=== PATIENT | female | born 1950 | race Caucasian/White ===

== ENCOUNTER 2022-09-07 09:49 | Emergency (ER) | payer MEDICARE, OTHER ==
[2022-09-07] MEDS ORDERED: Sodium Chloride 0.9% 10 ML Syringe FLUSH PRN (10:08)
[2022-09-07] MEDS: Acetaminophen 500 MG Tab PO ONE (10:09)
[2022-09-07 10:40] LABS: ANION GAP 8.5 meq/L (7-15); CHLORIDE,CL 105 mmol/L (98-107); SODIUM,NA 141 mmol/L (136-145)
[2022-09-07 11:16] LABS: ESTIMATED GFR 85 mL/min (>=60)
[2022-09-07] MEDS: Iopamidol 612 MG/ML 100 ML Bottle IVPUSH ONE (12:37)
[2022-09-07 15:22] LABS: CORONAVIRUS COVID-19 NAA NEGATIVE (NEGATIVE); RESPIRATORY SYNCYTIAL VIR NAA NEGATIVE (NEGATIVE)
== END 2022-09-07 15:15 ==
LOC: LL.ED 09:49
DX: K43.6 Other and unspecified ventral hernia with obstruction, without gangrene (principal); Z88.0 Allergy status to penicillin; Z88.2 Allergy status to sulfonamides; Z20.822 Contact with and (suspected) exposure to COVID-19
CPT/HCPCS: 0241U; 36415; 74177; 80053; 83605; 85025; 99284; 99285; A9270; Q9967

== ENCOUNTER 2023-05-18 05:52 | Emergency (ER) | payer MEDICARE, OTHER ==
[2023-05-18] MEDS ORDERED: Ondansetron 4 MG Tab.DIS PO ONE (05:59)
[2023-05-18 06:19] LABS: BASOPHILS ABSOLUTE AUTO 0.03 K/uL (0.00-0.20); BASOPHILS PERCENT AUTO 0.3 % (0.0-2.0); EOSINOPHILS ABSOLUTE AUTO 0.01 K/uL (0.00-0.50); EOSINOPHILS PERCENT AUTO 0.1 % (0.0-5.0); HEMATOCRIT 41.2 % (34.0-46.0); HEMOGLOBIN 13.6 g/dL (11.7-15.5); LYMPHOCYTES ABSOLUTE AUTO 1.59 K/uL (0.50-3.50); LYMPHOCYTES PERCENT AUTO 13.8 % (10.0-50.0); MEAN CORPUSCULAR HEMOGLOBIN 28.2 pg (28.2-33.3); MEAN CORPUSCULAR VOLUME 85.5 fL (84.0-98.0); MONOCYTES PERCENT AUTO 4.4 % (2.0-14.0); NEUTROPHILS ABSOLUTE AUTO 9.36 K/uL (1.40-7.00); NEUTROPHILS PERCENT AUTO 81.4 % (45.0-80.0); PLATELET COUNT,PLT 368 K/uL (150-350); RED BLOOD CELL COUNT 4.82 M/uL (3.77-5.09); RED CELL DISTRIBUTION WIDTH 13.7 % (11.2-14.1); WHITE BLOOD CELL COUNT,WBC 11.5 K/uL (4.0-10.2)
[2023-05-18 06:49] LABS: ALBUMIN 3.9 g/dL (3.4-5.0); ANION GAP 12.1 meq/L (7-15); BILIRUBIN TOTAL 0.6 mg/dL (0.2-1.0); CALCIUM 9.5 mg/dL (8.5-10.1); CARBON DIOXIDE,CO2 24.9 mmol/L (21.0-32.0); CREATININE 0.71 mg/dL (0.51-1.17); EST CRCL DRUG DOSING (CG) 57.5 mL/min; POTASSIUM,K 4.3 mmol/L (3.5-5.1); PROTEIN TOTAL,TP 7.8 g/dL (6.4-8.2)
[2023-05-18 06:56] LABS: CORONAVIRUS COVID-19 NAA NEGATIVE (NEGATIVE); INFLUENZA A NAA NEGATIVE (NEGATIVE); INFLUENZA B NAA NEGATIVE (NEGATIVE); RESPIRATORY SYNCYTIAL VIR NAA NEGATIVE (NEGATIVE)
[2023-05-18 07:17] LABS: APPEARANCE,URINE TURBID; BILIRUBIN,URINE NEGATIVE (NEGATIVE); COLOR,URINE YELLOW; GLUCOSE,URINE NEGATIVE (NEGATIVE); KETONES,URINE 15 mg/dL (NEGATIVE); LEUKOCYTE ESTERASE,URINE SMALL (NEGATIVE); NITRITE,URINE NEGATIVE (NEGATIVE); OCCULT BLOOD,URINE TRACE-INTACT (NEGATIVE); PH,URINE 6.5 (5.0-9.0); PROTEIN,URINE 30 mg/dL (NEGATIVE)
[2023-05-18] MEDS ORDERED: Sodium Chloride 0.9% 10 ML Syringe FLUSH PRN (07:24)
[2023-05-18] MEDS ORDERED: Sodium Chloride 0.9% 1,000 ML IV ONE (07:24)
[2023-05-18 07:43] LABS: RBC,URINE 0-5 /HPF
[2023-05-18 07:44] LABS: EPITHELIAL CELLS,URINE FEW /LPF
[2023-05-18] MEDS ORDERED: Lactulose Soln 10 GM/15 ML 30 ML UD Cup PO ONE (09:02)
== END 2023-05-18 10:26 | disposition home or self-care (01) ==
LOC: LL.ED 05:52
DX: R11.2 Nausea with vomiting, unspecified (principal); K59.00 Constipation, unspecified; Z20.822 Contact with and (suspected) exposure to COVID-19; Z79.899 Other long term (current) drug therapy; Z88.0 Allergy status to penicillin; Z88.2 Allergy status to sulfonamides
CPT/HCPCS: 0241U; 36415; 74019; 80053; 81001; 83605; 83880; 85025; 96360; 96361; 99284-25; A9270-GY; J3490; J7030